=== PATIENT | female | born 1990 | race Caucasian/White ===

== ENCOUNTER 2019-08-29 09:35 | Emergency (ER) | payer SELFPAY ==
[~2019-08-29] VITALS: Ht 162.6 cm; Wt 61.8 kg
[2019-08-29 09:54] VITALS: Ht 162.6 cm; Wt 61.8 kg
[2019-08-29 11:16] LABS: APPEARANCE CLOUDY (CLEAR); COLOR YELLOW (YELLOW); NITRITE NEGATIVE (NEGATIVE); SPECIFIC GRAVITY 1.025 (1.005-1.020)
[2019-08-29 11:17] LABS: BACTERIA MODERATE /hpf (NEGATIVE); BILIRUBIN NEGATIVE (NEGATIVE); EPITHELIAL CELLS 0-5 /hpf (0-5); GLUCOSE NEGATIVE (NEGATIVE); KETONE LARGE mg/dL (NEGATIVE); PROTEIN 1+ mg/dL (NEGATIVE); RED CELLS - URINE NONE SEEN /hpf (0-5); WHITE CELLS - URINE RARE /hpf (NEGATIVE)
[2019-08-29 11:18] LABS: MUCUS <1+ /lpf (NONE SEEN)
[2019-08-29 11:33] LABS: HCG URINE NEGATIVE (NEGATIVE)
[2019-08-29] MEDS ORDERED: IBUPROFEN800 MG PO (12:12)
[2019-08-29] MEDS ORDERED: HYDROCODON-ACE1 EAC7 PO (12:12)
[2019-08-29 12:26] VITALS: BP 130/66
== END 2019-08-29 12:27 | disposition home or self-care (01) ==
LOC: D.ER 09:35
PROVIDERS: Family Medicine
DX: M54.5 Low back pain (principal); M41.9 Scoliosis, unspecified

== ENCOUNTER 2020-01-18 10:29 | Emergency (ER) | payer MEDICAID ==
[~2020-01-18] VITALS: Ht 162.6 cm; Wt 61.7 kg
[~2020-01-18 10:29] MED LIST: HYDROCODON-ACE1 EAC7 PO; IBUPROFEN800 MG PO
[2020-01-18 10:31] VITALS: Ht 162.6 cm; Wt 61.7 kg
[2020-01-18 11:14] LABS: BASOPHILS 0.3 % (0-2); EOSINOPHILS 0.3 % (0-7); HEMATOCRIT 41.3 % (36.0-48.0); HEMOGLOBIN 14.7 g/dL (12-16); IMMATURE GRANULOCYTES 0.1 % (0-5); LYMPHOCYTES 30.3 % (15-50); MCH 31.8 pg (26.0-34.0); MCHC 35.6 g/dL (31.0-37.0); MCV 89.4 fL (80.0-100.0); MEAN PLATELET VOLUME 9.2 fL (7.4-10.4); MONOCYTES 9.3 % (2-11); NEUTROPHILS 59.7 % (40-80); PLATELET COUNT 237 10x3/uL (130-400); RBC 4.62 10x6/uL (4.00-5.40); RDW 12.1 % (11.5-14.5); WBC 6.8 10x3/uL (4.8-10.8)
[2020-01-18 11:18] LABS: CALC OSMOLALITY 275 mosm/kg (275-300); CALCIUM 9.1 mg/dL (8.5-10.1); CARBON DIOXIDE 25.8 mmol/L (21.0-32.0); CHLORIDE - SERUM 103 mmol/L (98-107); CREATININE - SERUM 0.8 mg/dL (0.6-1.3); GLUCOSE 95 mg/dL (74-106); POTASSIUM - SERUM 3.3 mmol/L (3.5-5.1); SODIUM 139 mmol/L (136-145); UREA NITROGEN 6 mg/dL (7-18); eGFR NON AFRICAN AMERICAN 89 mL/min (90-120)
[2020-01-18 11:31] LABS: BILIRUBIN NEGATIVE (NEGATIVE); GLUCOSE NEGATIVE (NEGATIVE); KETONE NEGATIVE (NEGATIVE); NITRITE NEGATIVE (NEGATIVE); SPECIFIC GRAVITY 1.005 (1.005-1.020); UROBILINOGEN NORMAL (NORMAL)
[2020-01-18 11:33] LABS: ALBUMIN 3.9 g/dL (3.4-5.0); ALKALINE PHOSPHATASE 61 U/L (30-120); ALT (SGPT) 23 U/L (10-68); BILIRUBIN - TOTAL 0.48 mg/dL (0.2-1.3); CKMB 1.7 U/L (0.0-3.6); CREATINE KINASE 126 UL (21-215); MAGNESIUM - SERUM 1.9 mg/dL (1.8-2.4); PRO BNP 111 pg/mL (0-125); PROTEIN - SERUM 7.1 g/dL (6.4-8.2); TROPONIN-I < 0.017 ng/mL (0.000-0.060)
[2020-01-18 11:40] LABS: UDS - AMPHET NEGATIVE QUAL (NEGATIVE); UDS - BARB NEGATIVE QUAL (NEGATIVE); UDS - BENZO NEGATIVE QUAL (NEGATIVE); UDS - COCAINE POSITIVE QUAL (NEGATIVE); UDS - OPIATE NEGATIVE QUAL (NEGATIVE); UDS - PCP NEGATIVE QUAL (NEGATIVE); UDS - THC NEGATIVE QUAL (NEGATIVE)
[2020-01-18 13:56] LABS: CKMB 1.2 U/L (0.0-3.6); CREATINE KINASE 103 UL (21-215)
[2020-01-18 13:58] LABS: TROPONIN-I < 0.017 ng/mL (0.000-0.060)
[2020-01-18] MEDS ORDERED: EC-NAPROSYN500 MG PO (14:14)
[2020-01-18 16:01] VITALS: BP 131/62
== END 2020-01-18 15:00 | disposition home or self-care (01) ==
LOC: D.ER 10:29
PROVIDERS: Family Medicine
DX: R07.9 Chest pain, unspecified (principal); M41.9 Scoliosis, unspecified; F17.210 Nicotine dependence, cigarettes, uncomplicated

== ENCOUNTER 2020-01-30 00:13 | Emergency (ER) | payer MEDICAID ==
[~2020-01-30] VITALS: Ht 162.6 cm; Wt 59.1 kg
[~2020-01-30 00:13] MED LIST changes: +EC-NAPROSYN500 MG PO
[2020-01-30 00:16] VITALS: Ht 162.6 cm; Wt 59.1 kg
[2020-01-30 00:49] LABS: BASOPHILS 0.5 % (0-2); EOSINOPHILS 1.1 % (0-7); HEMATOCRIT 41.6 % (36.0-48.0); HEMOGLOBIN 14.3 g/dL (12-16); LYMPHOCYTES 44.3 % (15-50); MCH 31.2 pg (26.0-34.0); MCHC 34.4 g/dL (31.0-37.0); MCV 90.8 fL (80.0-100.0); MEAN PLATELET VOLUME 9.6 fL (7.4-10.4); MONOCYTES 8.1 % (2-11); PLATELET COUNT 237 10x3/uL (130-400); RBC 4.58 10x6/uL (4.00-5.40); RDW 11.9 % (11.5-14.5); WBC 6.3 10x3/uL (4.8-10.8)
[2020-01-30 00:51] LABS: UDS - AMPHET NEGATIVE QUAL (NEGATIVE); UDS - BARB NEGATIVE QUAL (NEGATIVE); UDS - BENZO NEGATIVE QUAL (NEGATIVE); UDS - COCAINE NEGATIVE QUAL (NEGATIVE); UDS - OPIATE NEGATIVE QUAL (NEGATIVE); UDS - PCP NEGATIVE QUAL (NEGATIVE); UDS - THC POSITIVE QUAL (NEGATIVE)
[2020-01-30 00:56] LABS: BILIRUBIN NEGATIVE (NEGATIVE); GLUCOSE NEGATIVE (NEGATIVE); KETONE NEGATIVE (NEGATIVE); NITRITE NEGATIVE (NEGATIVE); UROBILINOGEN NORMAL (NORMAL)
[2020-01-30 00:57] LABS: BACTERIA MODERATE /hpf (NEGATIVE); EPITHELIAL CELLS 0-5 /hpf (0-5); RED CELLS - URINE 0-5 /hpf (0-5); WHITE CELLS - URINE 0-5 /hpf (NEGATIVE)
[2020-01-30 00:57] LABS: CALC OSMOLALITY 268 mosm/kg (275-300); CALCIUM 8.7 mg/dL (8.5-10.1); CARBON DIOXIDE 29.6 mmol/L (21.0-32.0); CHLORIDE - SERUM 97 mmol/L (98-107); CREATININE - SERUM 0.8 mg/dL (0.6-1.3); GLUCOSE 93 mg/dL (74-106); POTASSIUM - SERUM 3.5 mmol/L (3.5-5.1); SODIUM 134 mmol/L (136-145); UREA NITROGEN 14 mg/dL (7-18); eGFR NON AFRICAN AMERICAN 89 mL/min (90-120)
[2020-01-30 01:33] VITALS: BP 124/82
== END 2020-01-30 01:28 | disposition home or self-care (01) ==
LOC: D.ER 00:13
PROVIDERS: Family Medicine
DX: F41.0 Panic disorder [episodic paroxysmal anxiety] (principal)

== ENCOUNTER 2020-07-02 13:30 | Emergency (ER) | payer OTHER ==
[2020-07-02 13:40] VITALS: Ht 162.6 cm
[2020-07-02 14:39] LABS: BASOPHILS 0.7 % (0-2); EOSINOPHILS 2.4 % (0-7); HEMATOCRIT 42.6 % (36.0-48.0); HEMOGLOBIN 14.8 g/dL (12-16); IMMATURE GRANULOCYTES 0.2 % (0-5); LYMPHOCYTES 59.7 % (15-50); MCH 31.4 pg (26.0-34.0); MCHC 34.7 g/dL (31.0-37.0); MCV 90.4 fL (80.0-100.0); MEAN PLATELET VOLUME 9.9 fL (7.4-10.4); MONOCYTES 6.9 % (2-11); NEUTROPHILS 30.1 % (40-80); RBC 4.71 10x6/uL (4.00-5.40); RDW 12.2 % (11.5-14.5); WBC 4.2 10x3/uL (4.8-10.8)
[2020-07-02 14:47] LABS: PLATELET COUNT 186 10x3/uL (130-400)
[2020-07-02 14:50] LABS: HCG SERUM NEGATIVE (NEGATIVE)
[2020-07-02 14:51] LABS: CALC OSMOLALITY 279 mosm/kg (275-300); CARBON DIOXIDE 29.8 mmol/L (21.0-32.0); CHLORIDE - SERUM 102 mmol/L (98-107); CREATININE - SERUM 0.7 mg/dL (0.6-1.3); GLUCOSE 97 mg/dL (74-106); POTASSIUM - SERUM 3.8 mmol/L (3.5-5.1); SODIUM 141 mmol/L (136-145); UREA NITROGEN 9 mg/dL (7-18); eGFR NON AFRICAN AMERICAN > 90 mL/min (90-120)
[2020-07-02 14:59] LABS: BILIRUBIN NEGATIVE (NEGATIVE); KETONE NEGATIVE (NEGATIVE); NITRITE NEGATIVE (NEGATIVE); UROBILINOGEN NORMAL (NORMAL)
[2020-07-02 15:05] LABS: ALBUMIN 3.9 g/dL (3.4-5.0); ALKALINE PHOSPHATASE 75 U/L (30-120); ALT (SGPT) 23 U/L (10-68); BILIRUBIN - TOTAL 0.38 mg/dL (0.2-1.3); PROTEIN - SERUM 6.6 g/dL (6.4-8.2); THYROID STIMULATING HORMONE 3.43 uIU/mL (0.36-3.74)
[2020-07-02 15:09] LABS: TROPONIN-I < 0.017 ng/mL (0.000-0.060)
[2020-07-02] MEDS ORDERED: PEPCID40 MG PO ×2 (15:32→15:36)
[2020-07-02 16:12] VITALS: BP 104/81
== END 2020-07-02 16:12 | disposition home or self-care (01) ==
LOC: D.ER 13:30
PROVIDERS: Emergency Medicine
DX: R07.9 Chest pain, unspecified (principal); R06.00 Dyspnea, unspecified; R00.2 Palpitations; R53.1 Weakness; F41.9 Anxiety disorder, unspecified